=== PATIENT | male | born 1955 | race Caucasian/White ===

== ENCOUNTER 2017-12-12 10:32 | Day surgery (SDC) | payer SELFPAY ==
[~2017-12-12] VITALS: Ht 180.3 cm; Wt 127.0 kg
[~2017-12-12 10:32] MED LIST: ALBU90OI61 INH; ASPI81CH PO; CLON.1 PO; HYDRA50 PO; Hydrochloroth12.5 MG PO; LISI20 PO; LOSARTAN POTAS100 MG PO; METF500 PO; Norco 5-325 Ta1 EACH PO; Zofran Odt4 MG SL
[2017-12-13] MEDS ORDERED: METO50ER PO (11:26)
== END 2017-12-13 12:27 | disposition home or self-care (01) ==
LOC: MHTC 10:32 → PCU 14:45 → MHTC 12-13 12:27
PROC: 02H63JZ Insertion of Pacemaker Lead into Right Atrium, Percutaneous Approach (ICD-10-PCS; principal; 2017-12-12)
PROC: 02HK3JZ Insertion of Pacemaker Lead into Right Ventricle, Percutaneous Approach (ICD-10-PCS; principal; 2017-12-12)
PROC: 0JH606Z Insertion of Pacemaker, Dual Chamber into Chest Subcutaneous Tissue and Fascia, Open Approach (ICD-10-PCS; principal; 2017-12-12)
DX: I44.2 Atrioventricular block, complete (principal); R00.1 Bradycardia, unspecified; I10 Essential (primary) hypertension; I25.10 Atherosclerotic heart disease of native coronary artery without angina pectoris; E11.9 Type 2 diabetes mellitus without complications
CPT/HCPCS: 33208; 71045; 82947; 94760; 99152; 99153; C1785; C1898; J0690; J1644; J2250; J2405; J3010; J7030; J7040

== ENCOUNTER 2020-12-05 12:57 | Day surgery (SDC) | payer MEDICARE, OTHER ==
[~2020-12-05] VITALS: Ht 180.3 cm; Wt 105.5 kg
[~2020-12-05 12:57] MED LIST changes: +METO50ER PO
== END 2020-12-05 14:35 | disposition home or self-care (01) ==
LOC: ORSCSDS 12:57
PROVIDERS: Surgery
PROC: 0DJD8ZZ Inspection of Lower Intestinal Tract, Via Natural or Artificial Opening Endoscopic (ICD-10-PCS; principal; 2020-12-05 14:15)
DX: Z12.11 Encounter for screening for malignant neoplasm of colon (principal); Z80.0 Family history of malignant neoplasm of digestive organs; I25.10 Atherosclerotic heart disease of native coronary artery without angina pectoris; Z95.0 Presence of cardiac pacemaker; R73.03 Prediabetes; I10 Essential (primary) hypertension; Z79.899 Other long term (current) drug therapy; Z87.891 Personal history of nicotine dependence
CPT/HCPCS: 82947; J2704; J7120